=== PATIENT | male | born 1985 | race Caucasian/White ===

== ENCOUNTER 2020-07-13 23:53 | Emergency (ER) | payer BC ==
[~2020-07-13] VITALS: Ht 185.4 cm; Wt 90.7 kg
[2020-07-14] MEDS ORDERED: IBUPROFEN 800 MG TABLET PO ONE (00:30)
--- NOTE | 2020-07-14 01:11 | NUR ---
Patient discharged to home in stable condition. Written and verbal after care instructions given. Patient verbalizes understanding of instructions. Stressed follow up or return to ER for worsening s/s.
== END 2020-07-14 01:12 | disposition home or self-care (01) ==
LOC: ER 07-14 00:03
DX: S93.401A Sprain of unspecified ligament of right ankle, initial encounter (principal); X50.1XXA Overexertion from prolonged static or awkward postures, initial encounter; Y93.66 Activity, soccer; Y92.89 Other specified places as the place of occurrence of the external cause; R03.0 Elevated blood-pressure reading, without diagnosis of hypertension
CPT/HCPCS: 73610